=== PATIENT | female | born 1995 | race Caucasian/White ===

== ENCOUNTER 2017-03-25 13:29 | Emergency (ER) | payer MEDICAID ==
[~2017-03-25] VITALS: Ht 152.4 cm; Wt 69.0 kg
[2017-03-25] MEDS ORDERED: IBUPROFEN 400MG TABLET PO ONE (15:00)
[2017-03-25 15:25] LABS: BASOPHILS % 1.4 % (0.0-2.0); EOSINOPHILS % 0.6 % (0.0-5.0); HEMATOCRIT. 37.3 % (36.0-48.0); HEMOGLOBIN. 12.9 g/dL (12.0-16.0); LYMPHOCYTES % 24.3 % (20.0-50.0); MEAN CORPUSCULAR HEMOGLOBIN 30.1 pg (28.0-32.0); MEAN CORPUSCULAR VOLUME 87.1 fL (81.0-99.0); MEAN PLATELET VOLUME 7.4 fl (7.4-10.4); NEUTROPHILS % 65.7 % (40.0-76.0); PLATELET 400 x1000/uL (130-400); RED BLOOD CELL COUNT 4.28 mill/uL (4.2-5.4); RED CELL DISTRIBUTION WIDTH 13.2 % (11.6-14.6)
[2017-03-25 15:28] LABS: CLARITY URINE CLEAR (CLEAR); COLOR URINE YELLOW (YELLOW); GLUCOSE URINE NEGATIVE (NEGATIVE); KETONES URINE NEGATIVE (NEGATIVE); LEUKOCYTE ESTERASE URINE TRACE (NEGATIVE); NITRITE URINE NEGATIVE (NEGATIVE); OCCULT BLOOD URINE NEGATIVE (NEGATIVE); PH URINE 5.5 (4.5-8.0); PROTEIN URINE NEGATIVE (NEGATIVE); SPECIFIC GRAVITY URINE 1.024 (1.005-1.030); UROBILINOGEN URINE 0.2 E.U./dL (0.2-1.0)
[2017-03-25 15:40] LABS: CARBON DIOXIDE 25 mEq/L (21-32); CHLORIDE 105 mEq/L (98-107); ETHANOL BLOOD < 10 mg/dL
[2017-03-25 15:41] LABS: *BARBITURATES SCREEN URINE NEGATIVE (NEGATIVE); *BENZODIAZEPINES SCREEN URINE NEGATIVE (NEGATIVE); *COCAINE SCREEN URINE NEGATIVE (NEGATIVE); CANNABINOID URINE SCREEN NEGATIVE (NEGATIVE); METHADONE URINE SCREEN NEGATIVE (NEGATIVE); OPIATES URINE SCREEN NEGATIVE (NEGATIVE); PHENCYCLIDINE URINE SCREEN NEGATIVE (NEGATIVE)
[2017-03-25 15:43] LABS: *AMPHETAMINES SCREEN URINE PRESUMTIVE POSITIVE (NEGATIVE)
[2017-03-25 16:04] VITALS: BP 117/57
== END 2017-03-25 15:52 | disposition left against medical advice (07) ==
LOC: ER 13:29
DX: F15.10 Other stimulant abuse, uncomplicated (principal); F10.10 Alcohol abuse, uncomplicated
CPT/HCPCS: 36415; 80048; 80305; 81001; 81025; 85025; 93005; 99285; G0482; J7030; Z7610

== ENCOUNTER 2017-03-25 17:47 | Emergency (ER) | payer MEDICAID | END 2017-03-25 18:02 | disposition left against medical advice (07) | LOC: ER 17:47 | DX: Z53.21 Procedure and treatment not carried out due to patient leaving prior to being seen by health care provider (principal) ==